=== PATIENT | female | born 1995 | race Caucasian/White ===

== ENCOUNTER 2019-09-05 14:33 | Emergency (ER) | payer BC ==
[2019-09-05] MEDS ORDERED: Insulin Lispro 100 Units/ML 3 ML Vial SUBCUT ONE (14:50)
--- NOTE | 2019-09-05 14:51 | EDM.PDOC ---
ED HPI GENERAL MEDICAL PROBLEM - General Chief Complaint: Diabetic Complaint Stated Complaint: "out of insulin" Time Seen by Provider: 09/05/19 14:40 Source of Information: Reports: Patient History Limitations: Reports: No Limitations - History of Present Illness INITIAL COMMENTS - FREE TEXT/NARRATIVE: Patient presents to ER with concerns as is "out of insulin". Patient is in town for a graduation celebration and when she went to eat lunch, realized she only had 1 unit left in her pen. Blood sugar per her Descom reads 330 and she states it will continue to climb without replacement before she can get back to [place] to get another pen. Denies any other concerns at this time. Was diagnosed one month ago, has been following her sugars well and doing carb count to determine amount needed with each meal. Onset: Today, Sudden Duration: Minutes: Location: Reports: Generalized Associated Symptoms: Reports: No Other Symptoms - Related Data Allergies Allergy/AdvReac Type Severity Reaction Status Date / Time No Known Allergies Allergy Verified 09/05/19 14:50 Home Meds: Home Meds Insuln Asp Prot/Insulin Aspart [NovoLOG Mix 70-30] 0 unit SQ ASDIRECTED [History] Past Medical History Gastrointestinal History: Reports: Irritable Bowel Syndrome Endocrine/Metabolic History: Reports: Diabetes, Type I Social & Family History - Tobacco Use Smoking Status *Q: Never Smoker ED ROS GENERAL - Review of Systems Review Of Systems: See Below Constitutional: Denies: Fever, Chills, Malaise, Weakness, Decreased Appetite HEENT: Denies: Ear Pain, Sinus Problem, Throat Pain Respiratory: Denies: Shortness of Breath, Cough Cardiovascular: Denies: Chest Pain, Edema, Lightheadedness Endocrine: Denies: Fatigue GI/Abdominal: Denies: Abdominal Pain, Constipation, Diarrhea, Nausea, Vomiting : Reports: Frequency Musculoskeletal: Reports: No Symptoms Skin: Reports: No Symptoms Neurological: Reports: No Symptoms ED EXAM GENERAL NO PERIP PULSE - Physical Exam Exam: See Below Exam Limited By: No Limitations General Appearance: Alert, WD/WN, No Apparent Distress (no other formal exam completed as patient here for prescription refill and has no current symptoms of complaint) Course - Vital Signs Last Recorded V/S: Last Vital Signs Temp 99.7 F 09/05/19 14:40 Pulse 81 09/05/19 14:40 Resp 18 09/05/19 14:40 BP 139/94 H 09/05/19 14:40 Pulse Ox 96 09/05/19 14:40 - Orders/Labs/Meds Meds: Medications Discontinued Medications Generic Name Dose Route Start Last Admin Trade Name Samir PRN Reason Stop Dose Admin Insulin Human Lispro 10 unit 09/05/19 14:50 Humalog SUBCUT 09/05/19 14:51 ONETIME ONE Departure - Departure Time of Disposition: 15:06 Disposition: Home, Self-Care 01 Condition: Good Clinical Impression: Hyperglycemia - Discharge Information *PRESCRIPTION DRUG MONITORING PROGRAM REVIEWED*: No *COPY OF PRESCRIPTION DRUG MONITORING REPORT IN PATIENT URI: No Instructions: Hyperglycemia Referrals: PCP,None [Primary Care Provider] - Forms: ED Department Discharge Additional Instructions: 1. Insulin per patient guidelines 2. Follow up with PCP for any concerns. Sepsis Event Note (ED) - Evaluation Sepsis Screening Result: No Definite Risk - Focused Exam Vital Signs: Vital Signs Temp Pulse Resp BP Pulse Ox 09/05/19 14:40 99.7 F 81 18 139/94 H 96
== END 2019-09-05 15:21 | disposition home or self-care (01) ==
LOC: VM.ED 14:33
DX: E10.65 Type 1 diabetes mellitus with hyperglycemia (principal)
CPT/HCPCS: 99283; J1815-GY